=== PATIENT | female | born 1970 | race Caucasian/White ===

== ENCOUNTER 2016-07-09 05:45 | Emergency (ER) | payer BC ==
[2016-07-09 08:09] LABS: Hematocrit 47 % (35-47); Hemoglobin 15.9 g/dl (12.0-16.0); Mean Corpuscular HGB Conc 34 g/dl (31-36); Mean Corpuscular Hemoglobin 35 pg (27-31); Mean Corpuscular Volume 101 fL (80-97); Mean Platelet Volume 9 um3 (7.4-10.4); Red Blood Count 4.62 10^6/ul (4.0-5.4); Red Cell Distribution Width 13 % (10.5-15); White Blood Count 5.2 10^3/ul (3.5-10.8)
[2016-07-09 08:20] LABS: Albumin 3.7 g/dL (3.2-5.2); BUN/Creatinine Ratio 12.3 (8-20); C Reactive Protein 5.04 mg/L (< 5.00); EGFR African American 97.5 (>60); EGFR Non-African American 75.8 (>60); Globulin 2.7 g/dL (2-4); Magnesium 1.8 mg/dL (1.9-2.7); Potassium 3.9 mmol/L (3.5-5.0); Total Bilirubin 0.6 mg/dL (0.2-1.0); Total Protein 6.4 g/dL (6.4-8.9)
[2016-07-09 08:22] LABS: Urine Bacteria Absent (Absent); Urine Bilirubin Negative (Negative); Urine Glucose Negative (Negative); Urine Nitrite Negative (Negative)
--- NOTE | 2016-07-09 08:25 | RAD ---
INDICATION: Palpitations COMPARISON: December 29, 2012 TECHNIQUE: An AP portable view obtained at 0757 hours is submitted. FINDINGS: Bones/Soft Tissues: There are no acute bony findings. Cardiomediastinal: The cardiomediastinal silhouette is normal. Lungs: There are no infiltrates. Pleura: There are no pleural effusions. Other: None IMPRESSION: NO ACTIVE DISEASE.
[2016-07-09 08:43] LABS: TSH (Thyroid Stimulating Horm) 2.51 mcIU/mL (0.34-5.60)
--- NOTE | 2016-07-09 09:53 | ED ---
Zane Mao Auryana, scribed for William Simmons MD on 07/09/16 at 0748 . Palpitations / Dysrhythmia - HPI Summary HPI Summary: 46 year old female presents increased heart rate (105 on FitBit) and palpitations that woke her out sleep at 03:30 this morning. She reports that she was laying in bed when her symptoms started - took her blood pressure and reported that it was high. She believed it was anxiety but it did not subside. She also reports that she urinated 7 times within 45 minutes, [employer] - states full volume with increased urgency, nausea, diaphoresis, headache, and mild lightheadedness upon standing. She denies any chest pain, SOB, abdominal pain, burning with urination, edema, or any syncope. She reports that she currently has a ARREAGA and feels tired but does not have any palpitations currently. She denies any excessive salt intake yesterday and states NML BM. She is currently on oral control but denies any diuretic use. She reports that her ARREAGA lasted longer than normal- recent episode was 4 days ago and lasted 2 days. PMHx is significant for migraines. No history of DVT or PE. No history of tobacco use. - History of Current Complaint Chief Complaint: EDDysrhythmPalp Time Seen by Provider: 07/09/16 07:49 Hx Obtained From: Patient Onset/Duration: Sudden Onset - 03:30, Still Present - ARREAGA and tiredness, Resolved - denies increase HR/palpitations now Timing: Intermittent Episodes Lasting: - intermittent palpitations and increased HR- constant ARREAGA and higher than NML BP - per patient Severity Initially: Mild Severity Currently: Mild Character: Pounding - reports that she was able to hear it - states that he was able to see it though her nightgown Associated Signs & Symptoms: Lightheadedness, Diaphoresis, Nausea Related History: Similar Episode/Dx as - PMHx of migraines - Allergy/Home Medications Allergies/Adverse Reactions: Allergies Allergy/AdvReac Type Severity Reaction Status Date / Time No Known Allergies Allergy Verified 07/09/16 05:52 PMH/Surg Hx/FS Hx/Imm Hx Neurological History: Reports: Hx Migraine Infectious Disease History: No Infectious Disease History: Denies: Traveled Outside the [place] in Last 30 Days - Family History Known Family History: Negative: Cardiac Disease - no history of GA, Respiratory Disease - Social History Occupation: Employed Full-time Lives: With Family Alcohol Use: None Substance Use Type: Reports: None Smoking Status (MU): Never Smoked Tobacco Review of Systems Positive: Skin Diaphoresis, Other - LIGHTHEADEDNESS -MILD. Negative: Fever Eyes: Negative ENT: Negative Positive: Palpitations, Other - increase HR. Negative: Chest Pain Respiratory: Negative Negative: Shortness Of Breath Positive: Nausea. Negative: Abdominal Pain Positive: frequency - 7X, urgency. Negative: burning Musculoskeletal: Negative Negative: Edema Skin: Negative Positive: Headache. Negative: Syncope Psychological: Normal All Other Systems Reviewed And Are Negative: Yes Physical Exam Triage Information Reviewed: Yes Vital Signs On Initial Exam: Initial Vitals Temp Pulse Resp BP Pulse Ox 97.5 F 89 18 163/105 96 07/09/16 05:52 07/09/16 05:52 07/09/16 05:52 07/09/16 05:52 07/09/16 05:52 Vital Signs Reviewed: Yes Appearance: Positive: Well-Appearing, No Pain Distress Skin: Positive: Warm, Skin Color Reflects Adequate Perfusion, Dry Head/Face: Positive: Normal Head/Face Inspection Eyes: Positive: EOMI, DAVIDA ENT: Positive: Normal ENT inspection Neck: Positive: Supple, Nontender Respiratory/Lung Sounds: Positive: Clear to Auscultation, Breath Sounds Present Cardiovascular: Positive: RRR Abdomen Description: Positive: Nontender, Soft Bowel Sounds: Positive: Present Musculoskeletal: Positive: Normal, Strength/ROM Intact Neurological: Positive: Normal, Sensory/Motor Intact, Alert, Oriented to Person Place, Time Psychiatric: Positive: Affect/Mood Appropriate - [place] Coma Scale Coma Scale Total: 15 Diagnostics - Vital Signs Vital Signs Temp Pulse Resp BP Pulse Ox 07/09/16 06:40 97.5 F 77 16 159/96 98 07/09/16 06:00 85 13 152/92 97 07/09/16 05:57 89 96 07/09/16 05:56 163/105 07/09/16 05:52 97.5 F 89 18 163/105 96 - Laboratory Lab Results: Lab Results 07/09/16 07/09/16 07/09/16 Range/Units 06:51 06:51 06:51 WBC 5.2 (3.5-10.8) 10^3/ul RBC 4.62 (4.0-5.4) 10^6/ul Hgb 15.9 (12.0-16.0) g/dl Hct 47 (35-47) % MCV 101 H (80-97) fL MCH 35 H (27-31) pg MCHC 34 (31-36) g/dl RDW 13 (10.5-15) % Plt Count 180 (150-450) 10^3/ul MPV 9 (7.4-10.4) um3 Neut % (Auto) 40.2 (38-83) % Lymph % (Auto) 47.2 H (25-47) % Jay % (Auto) 8.6 (1-9) % Eos % (Auto) 3.6 (0-6) % Baso % (Auto) 0.4 (0-2) % Absolute Neuts (auto) 2.1 (1.5-7.7) 10^3/ul Absolute Lymphs (auto) 2.4 (1.0-4.8) 10^3/ul Absolute Monos (auto) 0.4 (0-0.8) 10^3/ul Absolute Eos (auto) 0.2 (0-0.6) 10^3/ul Absolute Basos (auto) 0 (0-0.2) 10^3/ul Absolute Nucleated RBC 0.01 10^3/ul Nucleated RBC % 0.1 INR (Anticoag Therapy) 0.82 L (0.89-1.11) APTT 26.5 (26.0-36.3) seconds D-Dimer, Quantitative < 200 (Less Than 230) ng/mL Sodium 139 (133-145) mmol/L Potassium 3.9 (3.5-5.0) mmol/L Chloride 107 (101-111) mmol/L Carbon Dioxide 24 (22-32) mmol/L Anion Gap 8 (2-11) mmol/L BUN 10 (6-24) mg/dL Creatinine 0.81 (0.51-0.95) mg/dL Est GFR ( Amer) 97.5 (>60) Est GFR (Non-Af Amer) 75.8 (>60) BUN/Creatinine Ratio 12.3 (8-20) Glucose 108 H (70-100) mg/dL Lactic Acid (0.5-2.0) mmol/L Calcium 9.0 (8.6-10.3) mg/dL Magnesium 1.8 L (1.9-2.7) mg/dL Total Bilirubin 0.60 (0.2-1.0) mg/dL AST 22 (13-39) U/L ALT 22 (7-52) U/L Alkaline Phosphatase 53 (34-104) U/L Total Creatine Kinase 28 (10-223) U/L CK-MB (CK-2) 1.6 (0.6-6.3) ng/mL Troponin I 0.00 (<0.04) ng/mL C-Reactive Protein 5.04 H (< 5.00) mg/L B-Natriuretic Peptide ( - 100) pg/mL Total Protein 6.4 (6.4-8.9) g/dL Albumin 3.7 (3.2-5.2) g/dL Globulin 2.7 (2-4) g/dL Albumin/Globulin Ratio 1.4 (1-3) Lipase 22 (11.0-82.0) U/L TSH 2.51 (0.34-5.60) mcIU/mL Urine Color Urine Appearance Urine pH (5-9) Ur Specific [place] (1.010-1.030) Urine Protein (Negative) Urine Ketones (Negative) Urine Blood (Negative) Urine Nitrate (Negative) Urine Bilirubin (Negative) Urine Urobilinogen (Negative) Ur Leukocyte Esterase (Negative) Urine WBC (Auto) (Absent) Urine RBC (Auto) (Absent) Ur Squamous Epith Cells (Absent) Urine Bacteria (Absent) Urine Glucose (Negative) 07/09/16 07/09/16 07/09/16 Range/Units 06:51 06:51 07:55 WBC (3.5-10.8) 10^3/ul RBC (4.0-5.4) 10^6/ul Hgb (12.0-16.0) g/dl Hct (35-47) % MCV (80-97) fL MCH (27-31) pg MCHC (31-36) g/dl RDW (10.5-15) % Plt Count (150-450) 10^3/ul MPV (7.4-10.4) um3 Neut % (Auto) (38-83) % Lymph % (Auto) (25-47) % Jay % (Auto) (1-9) % Eos % (Auto) (0-6) % Baso % (Auto) (0-2) % Absolute Neuts (auto) (1.5-7.7) 10^3/ul Absolute Lymphs (auto) (1.0-4.8) 10^3/ul Absolute Monos (auto) (0-0.8) 10^3/ul Absolute Eos (auto) (0-0.6) 10^3/ul Absolute Basos (auto) (0-0.2) 10^3/ul Absolute Nucleated RBC 10^3/ul Nucleated RBC % INR (Anticoag Therapy) (0.89-1.11) APTT (26.0-36.3) seconds D-Dimer, Quantitative (Less Than 230) ng/mL Sodium (133-145) mmol/L Potassium (3.5-5.0) mmol/L Chloride (101-111) mmol/L Carbon Dioxide (22-32) mmol/L Anion Gap (2-11) mmol/L BUN (6-24) mg/dL Creatinine (0.51-0.95) mg/dL Est GFR ( Amer) (>60) Est GFR (Non-Af Amer) (>60) BUN/Creatinine Ratio (8-20) Glucose (70-100) mg/dL Lactic Acid 1.5 (0.5-2.0) mmol/L Calcium (8.6-10.3) mg/dL Magnesium (1.9-2.7) mg/dL Total Bilirubin (0.2-1.0) mg/dL AST (13-39) U/L ALT (7-52) U/L Alkaline Phosphatase (34-104) U/L Total Creatine Kinase (10-223) U/L CK-MB (CK-2) (0.6-6.3) ng/mL Troponin I (<0.04) ng/mL C-Reactive Protein (< 5.00) mg/L B-Natriuretic Peptide 41 ( - 100) pg/mL Total Protein (6.4-8.9) g/dL Albumin (3.2-5.2) g/dL Globulin (2-4) g/dL Albumin/Globulin Ratio (1-3) Lipase (11.0-82.0) U/L TSH (0.34-5.60) mcIU/mL Urine Color Yellow Urine Appearance Clear Urine pH 6.0 (5-9) Ur Specific [place] 1.011 (1.010-1.030) Urine Protein Negative (Negative) Urine Ketones Trace H (Negative) Urine Blood 1+ H (Negative) Urine Nitrate Negative (Negative) Urine Bilirubin Negative (Negative) Urine Urobilinogen Negative (Negative) Ur Leukocyte Esterase Negative (Negative) Urine WBC (Auto) Absent (Absent) Urine RBC (Auto) Absent (Absent) Ur Squamous Epith Cells Present H (Absent) Urine Bacteria Absent (Absent) Urine Glucose Negative (Negative) Result Diagrams: 07/09/16 06:51 07/09/16 06:51 Lab Statement: Any lab studies that have been ordered have been reviewed, and results considered in the medical decision making process. - Radiology CXR Xray Interpretation: No Acute Changes Radiology Interpretation Completed By: Radiologist - EKG 05:56 EKG Interpretation: NSR @ 77 BPM, no ectopy, NML ST segment Re-Evaluation - Re-Evaluation First Eval Re-Evaluation Time: 09:47 - dicussed labs, CXR, and disposition Course/Dx - Course Course Of Treatment: NO CRITICAL CARE TIME Assessment/Plan: BP NORMALIZED IN ED. DISCUSSED RESULTS WITH PATIENT/. DISCUSSED 3 HOUR TROPONIN. PATIENT DECLINES 3 HOUR TROPONIN. DISCHARGE HOME STABLE. - Diagnoses Provider Diagnoses: Palpitations Discharge - Discharge Plan Condition: Stable Disposition: HOME Patient Education Materials: Palpitations (ED) Referrals: Renee Hackett MD [Primary Care Provider] - Additional Instructions: FOLLOW UP WITH YOUR DOCTOR. CALL TODAY. RETURN TO THE EMERGENCY DEPARTMENT FOR ANY WORSENING OF YOUR CONDITION; CHEST PAIN, SHORTNESS OF BREATH, YOU FEEL LIKE PASSING OUT OR QUESTIONS OR CONCERNS. The documentation as recorded by the Zane barnes Auryana accurately reflects the service I personally performed and the decisions made by me, William Simmons MD.
[2016-07-09 10:19] VITALS: BP 120/75
== END 2016-07-09 10:14 | disposition home or self-care (01) ==
LOC: ED 05:45
DX: R00.2 Palpitations (principal); R11.0 Nausea; R51 Headache
CPT/HCPCS: 36415; 71010; 80053; 81003; 81015; 82550; 82553; 83605; 83690; 83735; 83880; 84443; 84484; 85025; 85379; 85610; 85730; 86140; 93005; 99282

== ENCOUNTER 2017-01-28 06:04 | Day surgery (SDC) | payer BC ==
[~2017-01-28 06:04] MED LIST: Buffered Lidocaine 0.9% SYRIN* 5 ML/SYR SYRINGE INTRADERM ONE; DiMENhydriNATE IV* 50 MG/ML VIAL IV PUSH PRN; Famotidine IV* 10 MG/ML 2 ML (20 mg) IV ONE; Morphine INJ* 2 MG/ML 1 ML CARPUJECT IV PRN; PROCHLORPERAZINE INJ 5 MG/ML 2 ML VIAL IV PRN; Scopolamine 1.5 mg* PATCH TRANSDERM PRN; fentaNYL* 50 MCG/ML 2 ML VIAL (100 MCG VIAL) IV PRN
[2017-01-28] MEDS ORDERED: Famotidine IV* 10 MG/ML 2 ML (20 mg) ONE (06:16)
[2017-01-28] MEDS ORDERED: ceFAZolin 2 GM PREMIX (*) 2 GM/50 ML BAG IVPB ONE (06:16)
[2017-01-28] MEDS ORDERED: Buffered Lidocaine 0.9% SYRIN* 5 ML/SYR SYRINGE ONE (06:16)
[2017-01-28] MEDS ORDERED: Ondansetron INJ* 2 MG/ML VIAL ONE (06:16)
[2017-01-28] MEDS ORDERED: Scopolamine 1.5 mg* PATCH ONE ×2 (06:16→12:12)
[2017-01-28] MEDS ORDERED: Dexamethasone IV* 4 MG/ML 1 ML (4 MG) ONE (06:16)
[2017-01-28] MEDS ORDERED: Bupivacaine 0.25% SDV* 30 ML ONE (07:07)
[2017-01-28] MEDS ORDERED: ceFAZolin 1 GM ADVAN(*) 1 GM ADDV.VIAL IVPB ONE (07:27)
[2017-01-28] MEDS ORDERED: fentaNYL* 50 MCG/ML 2 ML VIAL (100 MCG VIAL) ONE ×2 (07:38→08:37)
[2017-01-28] MEDS ORDERED: Midazolam* 1 MG/ML 5 ML VIAL (5 MG) ONE (07:38)
[2017-01-28] MEDS ORDERED: KETAMINE HCL* 50 MG/ML 10 ML VIAL ONE (07:38)
[2017-01-28] MEDS ORDERED: Lidocaine 1% MPF wEPI 200,000* 30 ML SDV ONE (07:50)
[2017-01-28] MEDS ORDERED: Morphine INJ* 10 MG/ML 1 ML CARPUJECT ONE (08:00)
[2017-01-28] MEDS ORDERED: Lidocaine 2% PF * 5 ML VIAL ONE (10:08)
[2017-01-28] MEDS ORDERED: Propofol* 10 MG/ML 20 ML BTL IV PUSH ONE (10:08)
[2017-01-28] MEDS ORDERED: Succinylcholine* 20 MG/ML 10 ML VIAL ONE (10:08)
[2017-01-28] MEDS ORDERED: Labetalol IV* 5 MG/ML 20 ML VIAL ONE (11:48)
[2017-01-28] MEDS ORDERED: oxyCODONE TAB* 5 MG TAB ONE ×2 (12:12→12:51)
[2017-01-28] MEDS ORDERED: PROCHLORPERAZINE INJ 5 MG/ML 2 ML VIAL ONE (12:12)
[2017-01-28] MEDS ORDERED: Morphine INJ* 4 MG/ML 1 ML CARPUJECT ONE (12:13)
[2017-01-28] MEDS: oxyCODONE TAB* 5 MG TAB PO PRN ×2 (12:22→12:52)
[2017-01-28 14:04] VITALS: BP 133/74
[2017-01-31] MEDS ORDERED: Scopolamine PATCH Remove* 1 NOTE MISC PATCH OFF ONE (05:56)
== END 2017-01-28 14:20 | disposition home or self-care (01) ==
LOC: OR 06:04
PROVIDERS: ATTEND Plastic Surgery
DX: N62 Hypertrophy of breast (principal); E66.9 Obesity, unspecified; Z87.891 Personal history of nicotine dependence; Z88.8 Allergy status to other drugs, medicaments and biological substances; Z88.5 Allergy status to narcotic agent
CPT/HCPCS: 81025; 88305; A9270-GY; J0330; J0690; J0780; J1100; J2001; J2250; J2270; J2405; J2704; J3010